=== PATIENT | female | born 1975 | race African-American/Black ===

== ENCOUNTER 2017-12-18 09:20 | Emergency (ER) | payer OTHER, MEDICAID ==
[~2017-12-18] VITALS: Ht 167.6 cm; Wt 72.6 kg
[2017-12-18 11:04] LABS: Urine Bacteria NONE SEEN /hpf (None Seen); Urine Blood Negative /uL (Negative); Urine Hyaline Cast FEW /lpf (0 - 2); Urine Mucus FEW (None Seen); Urine Specific Gravity 1.048 (1.001-1.035); Urine WBC 2 /hpf (0 - 5)
[2017-12-18 11:22] LABS: Basophils # (auto) 0 uL; Basophils % (auto) 0.4 % (0.0-2.0); Eosinophils # (auto) 0.5 uL; Monocytes # (auto) 0.8 uL; Neutrophils # (auto) 5.5 uL; Nucleated Red Blood Cells % 0.1 %
[2017-12-18 11:23] LABS: Eosinophils % (auto) 5.4 % (0.0-7.0); Hematocrit 35.1 % (36.0-46.0); Hemoglobin 11.3 g/dL (12.2-16.2); Lymphocytes # (auto) 2.5 uL; Mean Corpuscular Hemoglobin 26.5 pg (28.0-32.0); Mean Corpuscular Hgb Conc. 32.3 g/dL (32.0-36.0); Mean Corpuscular Volume 82.1 fL (80.0-100.0); Monocytes % (auto) 8.6 % (0.0-12.0); Neutrophils % (auto) 58.6 % (37.0-80.0); Platelet Count (auto) 323 10^3/uL (140-450); Red Blood Cells 4.28 10^6/uL (4.0-5.20); Red Cell Distribution Width 18.2 % (11.8-14.3); White Blood Cell 9.4 10^3/uL (4.4-10.8)
[2017-12-18 11:38] LABS: Albumin 3.5 g/dL (3.4-5.0); BUN/Creatinine Ratio 21.8; Bilirubin, Total 0.4 mg/dL (0.2-1.0); Calcium 8.2 mg/dL (8.5-10.1); Total Protein 7.3 g/dL (6.4-8.2)
[2017-12-18] MEDS ORDERED: HYDROcodone-ACET 10/325MG TAB PO ONE (12:15)
[2017-12-18] MEDS ORDERED: methylPREDNISolone SOD SUCC 125 MG/2 ML VL IM ONE (12:15)
[2017-12-18 13:00] VITALS: BP 128/61
== END 2017-12-18 13:01 | disposition home or self-care (01) ==
LOC: ER 09:20
DX: M62.838 Other muscle spasm (principal); M32.9 Systemic lupus erythematosus, unspecified; Z88.6 Allergy status to analgesic agent; Z88.8 Allergy status to other drugs, medicaments and biological substances
CPT/HCPCS: 36415; 80053; 81001; 81025; 85025; 96372; 99284; J2930

== ENCOUNTER 2018-05-23 01:43 | Emergency (ER) | payer OTHER, MEDICAID ==
[~2018-05-23] VITALS: Ht 167.6 cm; Wt 74.8 kg
[2018-05-23 02:58] LABS: Basophils # (auto) 0 uL; Basophils % (auto) 0.4 % (0.0-2.0); Eosinophils # (auto) 0 uL; Eosinophils % (auto) 0.1 % (0.0-7.0); Hemoglobin 10.1 g/dL (12.2-16.2); Monocytes # (auto) 0.6 uL
[2018-05-23] MEDS ORDERED: KETOROLAC TROMETH 60MG/2ML VIAL IM ONE (03:00)
[2018-05-23 03:01] LABS: Hematocrit 32.3 % (36.0-46.0); Lymphocytes % (auto) 9.9 % (10.0-50.0); Mean Corpuscular Hemoglobin 21.7 pg (28.0-32.0); Mean Corpuscular Hgb Conc. 31.4 g/dL (32.0-36.0); Monocytes % (auto) 6.1 % (0.0-12.0); Neutrophils % (auto) 83.5 % (37.0-80.0); Red Blood Cells 4.67 10^6/uL (4.0-5.20); Red Cell Distribution Width 18.1 % (11.8-14.3); White Blood Cell 9.6 10^3/uL (4.4-10.8)
[2018-05-23 03:03] LABS: Albumin 3.3 g/dL (3.4-5.0); BUN/Creatinine Ratio 11.4; Calcium 8.5 mg/dL (8.5-10.1); Potassium 4.7 mmol/L (3.5-5.1)
[2018-05-23 03:06] LABS: Bilirubin, Total 0.2 mg/dL (0.2-1.0); Total Protein 8.6 g/dL (6.4-8.2)
[2018-05-23 03:50] LABS: Urine Bacteria FEW /hpf (None Seen); Urine Blood 2+ /uL (Negative); Urine Specific Gravity 1.034 (1.001-1.035); Urine WBC 2 /hpf (0 - 5)
[2018-05-23 04:14] LABS: Platelet Count (auto) 509 10^3/uL (140-450)
[2018-05-23] MEDS ORDERED: traMADol HCL 50 MG TAB PO ONE (04:15)
[2018-05-23 04:30] VITALS: BP 125/74
== END 2018-05-23 04:49 | disposition home or self-care (01) ==
LOC: ER 01:57
DX: R51 Headache (principal); G62.89 Other specified polyneuropathies; J44.9 Chronic obstructive pulmonary disease, unspecified; E11.9 Type 2 diabetes mellitus without complications; M19.90 Unspecified osteoarthritis, unspecified site; Z88.6 Allergy status to analgesic agent; Z88.8 Allergy status to other drugs, medicaments and biological substances
CPT/HCPCS: 36415; 71045; 80053; 81001; 81025; 85025; 85652

== ENCOUNTER 2018-07-12 09:33 | Day surgery (SDC) | payer OTHER, MEDICAID ==
[2018-07-11 14:45] LABS: Urine Bacteria NONE SEEN /hpf (None Seen); Urine Blood Negative /uL (Negative); Urine Specific Gravity 1.033 (1.001-1.035); Urine WBC <1 /hpf (0 - 5)
[2018-07-11 15:01] LABS: Albumin 3.4 g/dL (3.4-5.0); BUN/Creatinine Ratio 13.3; Bilirubin, Total 0.2 mg/dL (0.2-1.0); Calcium 8.5 mg/dL (8.5-10.1); Total Protein 7.9 g/dL (6.4-8.2)
[2018-07-11 15:03] LABS: INR 0.86 (0.9-1.15); Partial Thromboplastin Time 24.3 sec (23.78-33.04); Prothrombin Time 9.3 sec (9.27-12.13)
[2018-07-11 15:29] LABS: Basophils # (auto) 0.1 uL; Eosinophils # (auto) 0.3 uL; Monocytes # (auto) 0.9 uL; Nucleated Red Blood Cells % 0.1 %
[2018-07-11 15:30] LABS: Basophils % (auto) 0.7 % (0.0-2.0); Eosinophils % (auto) 2.6 % (0.0-7.0); Lymphocytes # (auto) 1.9 uL; Mean Corpuscular Hemoglobin 20.9 pg (28.0-32.0); Mean Corpuscular Hgb Conc. 30.3 g/dL (32.0-36.0); Mean Corpuscular Volume 68.9 fL (80.0-100.0); Monocytes % (auto) 9.1 % (0.0-12.0); Neutrophils % (auto) 68.6 % (37.0-80.0); Platelet Count (auto) 370 10^3/uL (140-450); Red Blood Cells 4.79 10^6/uL (4.0-5.20); White Blood Cell 10.2 10^3/uL (4.4-10.8)
[~2018-07-12] VITALS: Ht 167.6 cm; Wt 77.1 kg
[~2018-07-12 09:33] MED LIST: BACL10TA PO; CYCL1TAB18 PO; DIPH50CA31 OR; DOCU-94 PO; FOLI1TAB6 PO; GABA-339 PO; HYDR-3682 PO; HYDR-531 PO; INSU100I4 SC; LORA-654 PO; METF-929 PO; METH50IN6 IJ; METO-281 PO; OMEP20TA PO; ROPI0.5T PO
[2018-07-12] MEDS ORDERED: ceFAZolin 1GM/50ML 50 ML IV ONE (10:38)
[2018-07-12] MEDS ORDERED: NEOMYCIN-BACITRACIN-POLYM 15GM TOP OINT TOP ONE (12:59)
[2018-07-12] MEDS ORDERED: BUPIVACAINE 0.75% INJ 10ML MPV SDV IJ ONE (12:59)
[2018-07-12] MEDS ORDERED: MIDAZOLAM HCL 1MG/1ML-2 ML VIAL ONE (13:04)
[2018-07-12] MEDS ORDERED: PROPOFOL 10 MG/ML 20 ML IV ONE (13:09)
[2018-07-12] MEDS ORDERED: LIDOCAINE 2% (LOCAL ANESTH.) PF 5ml SDV ONE (13:09)
[2018-07-12] MEDS ORDERED: fentaNYL CITRATE 100 MCG/2 ML VL ONE (13:11)
[2018-07-12 14:01] VITALS: BP 135/75
== END 2018-07-12 14:13 | disposition home or self-care (01) ==
LOC: SUR 09:33
PROVIDERS: ATTEND Podiatrist Foot & Ankle Surgery
DX: M72.2 Plantar fascial fibromatosis (principal); E66.9 Obesity, unspecified; J44.9 Chronic obstructive pulmonary disease, unspecified; M06.9 Rheumatoid arthritis, unspecified; E11.9 Type 2 diabetes mellitus without complications; I10 Essential (primary) hypertension; D64.9 Anemia, unspecified; F41.9 Anxiety disorder, unspecified; Z88.6 Allergy status to analgesic agent; Z88.8 Allergy status to other drugs, medicaments and biological substances; Z98.890 Other specified postprocedural states
CPT/HCPCS: 28060; 36415; 80053; 81001; 82962; 84702; 85025; 85610; 85730; 88304; J0690; J2250; J2704; J3010; J3490; Q4137; J2001

== ENCOUNTER 2018-09-06 05:59 | Emergency (ER) | payer OTHER, MEDICAID ==
[~2018-09-06] VITALS: Ht 167.6 cm; Wt 77.1 kg
[2018-09-06 06:32] VITALS: BP 147/87
[2018-09-06] MEDS: methylPREDNISolone SOD SUCC 125 MG/2 ML VL IM ONE (07:41)
[2018-09-06] MEDS: KETOROLAC TROMETH 60MG/2ML VIAL IM ONE (07:42)
[2018-09-12] MEDS ORDERED: METO25TA4 PO (09:00)
== END 2018-09-06 08:03 | disposition home or self-care (01) ==
LOC: ER 06:00
DX: M25.532 Pain in left wrist (principal); M19.90 Unspecified osteoarthritis, unspecified site; E11.9 Type 2 diabetes mellitus without complications; J44.9 Chronic obstructive pulmonary disease, unspecified; M32.9 Systemic lupus erythematosus, unspecified; Z88.6 Allergy status to analgesic agent; Z88.8 Allergy status to other drugs, medicaments and biological substances
CPT/HCPCS: 73110; 96372; 99284; J1885; J2930

== ENCOUNTER → 2018-09-13 | Day surgery (SDC) | payer OTHER, MEDICAID ==
[2018-09-12 09:35] LABS: Basophils # (auto) 0 uL; Eosinophils # (auto) 0.2 uL; Hemoglobin 9.8 g/dL (12.2-16.2); Monocytes # (auto) 0.5 uL
[2018-09-12 09:37] LABS: Eosinophils % (auto) 3.6 % (0.0-7.0); Lymphocytes % (auto) 20.8 % (10.0-50.0); Mean Corpuscular Hemoglobin 18.6 pg (28.0-32.0); Mean Corpuscular Volume 64.1 fL (80.0-100.0); Neutrophils % (auto) 64.6 % (37.0-80.0); Nucleated Red Blood Cells % 0.1 %; Platelet Count (auto) 447 10^3/uL (140-450); Red Cell Distribution Width 19.5 % (11.8-14.3); White Blood Cell 4.7 10^3/uL (4.4-10.8)
[2018-09-12 09:58] LABS: Potassium 4.2 mmol/L (3.5-5.1)
[2018-09-12 10:03] LABS: INR 0.89 (0.9-1.15); Partial Thromboplastin Time 25.4 sec (23.78-33.04); Prothrombin Time 9.6 sec (9.27-12.13)
[2018-09-12 10:07] LABS: Albumin 3.7 g/dL (3.4-5.0); BUN/Creatinine Ratio 8.7; Bilirubin, Total 0.3 mg/dL (0.2-1.0); Total Protein 8.7 g/dL (6.4-8.2)
[2018-09-12 13:33] LABS: Urine Bacteria FEW /hpf (None Seen); Urine Blood Negative /uL (Negative); Urine Specific Gravity 1.037 (1.001-1.035); Urine WBC <1 /hpf (0 - 5)
[~2018-09-13] VITALS: Ht 167.6 cm; Wt 77.1 kg
[~2018-09-13] MED LIST changes: +BUPIVACAINE 0.75% INJ 10ML MPV SDV IJ ONE; +METO25TA4 PO; +MIDAZOLAM HCL 1MG/1ML-2 ML VIAL ONE; +NEOMYCIN-BACITRACIN-POLYM 15GM TOP OINT TOP ONE; +ONDANSETRON HCL 4 MG/2 ML VIAL IV ONE; +PROPOFOL 10 MG/ML 20 ML IV ONE; +ceFAZolin 1GM/50ML 50 ML IV ONE; +ePHEDrine SULFATE 50 MG/ML AMP IV PRN; +fentaNYL CITRATE 100 MCG/2 ML VL IV ONE; +fentaNYL CITRATE 100 MCG/2 ML VL ONE; +hydrALAZINE HCL 20 MG/ML VL IV PRN
[2018-09-13 11:45] VITALS: BP 119/81
== END | disposition home or self-care (01) ==
LOC: SUR 07:15
PROVIDERS: ATTEND Podiatrist Foot & Ankle Surgery
DX: M72.2 Plantar fascial fibromatosis (principal); J44.9 Chronic obstructive pulmonary disease, unspecified; E11.9 Type 2 diabetes mellitus without complications; M19.90 Unspecified osteoarthritis, unspecified site; M81.0 Age-related osteoporosis without current pathological fracture; E07.9 Disorder of thyroid, unspecified; M06.9 Rheumatoid arthritis, unspecified; M79.7 Fibromyalgia; Z88.8 Allergy status to other drugs, medicaments and biological substances; Z88.6 Allergy status to analgesic agent; Z98.890 Other specified postprocedural states
CPT/HCPCS: 28060; 36415; 80053; 81001; 82962; 84702; 85025; 85610; 85730; 88304; J0690; J2250; J2704; J3010; J3490; Q4137

== ENCOUNTER 2018-10-19 11:35 | Emergency (ER) | payer OTHER, MEDICAID ==
[~2018-10-19] VITALS: Ht 167.6 cm; Wt 77.1 kg
[~2018-10-19 11:35] MED LIST changes: -BUPIVACAINE 0.75% INJ 10ML MPV SDV IJ ONE; -MIDAZOLAM HCL 1MG/1ML-2 ML VIAL ONE; -NEOMYCIN-BACITRACIN-POLYM 15GM TOP OINT TOP ONE; -ONDANSETRON HCL 4 MG/2 ML VIAL IV ONE; -PROPOFOL 10 MG/ML 20 ML IV ONE; -ceFAZolin 1GM/50ML 50 ML IV ONE; -ePHEDrine SULFATE 50 MG/ML AMP IV PRN; -fentaNYL CITRATE 100 MCG/2 ML VL IV ONE; -fentaNYL CITRATE 100 MCG/2 ML VL ONE; -hydrALAZINE HCL 20 MG/ML VL IV PRN
[2018-10-19 12:26] VITALS: BP 141/84
== END 2018-10-19 12:52 | disposition home or self-care (01) ==
LOC: ER 11:35
DX: S60.452A Superficial foreign body of right middle finger, initial encounter (principal); S60.942A Unspecified superficial injury of right middle finger, initial encounter; J44.9 Chronic obstructive pulmonary disease, unspecified; E11.9 Type 2 diabetes mellitus without complications; M19.90 Unspecified osteoarthritis, unspecified site; Z88.6 Allergy status to analgesic agent; Z88.8 Allergy status to other drugs, medicaments and biological substances; Z79.899 Other long term (current) drug therapy; W22.8XXA Striking against or struck by other objects, initial encounter; Y93.89 Activity, other specified; Y92.89 Other specified places as the place of occurrence of the external cause; Y99.8 Other external cause status

== ENCOUNTER 2019-03-04 12:38 | Inpatient (IN) | payer OTHER, MEDICAID ==
[~2019-03-04] VITALS: Ht 167.6 cm; Wt 83.9 kg
[2019-03-04 13:20] LABS: Basophils # (auto) 0 uL; Eosinophils # (auto) 0 uL; Hemoglobin 9.8 g/dL (12.2-16.2); Lymphocytes # (auto) 0.4 uL; Red Cell Distribution Width 19.5 % (11.8-14.3)
[2019-03-04 13:21] LABS: Basophils % (auto) 0.4 % (0.0-2.0); Eosinophils % (auto) 0.1 % (0.0-7.0); Hematocrit 33.5 % (36.0-46.0); Lymphocytes % (auto) 3.8 % (10.0-50.0); Mean Corpuscular Hemoglobin 19.2 pg (28.0-32.0); Mean Corpuscular Hgb Conc. 29.3 g/dL (32.0-36.0); Mean Corpuscular Volume 65.6 fL (80.0-100.0); Monocytes # (auto) 0.1 uL; Monocytes % (auto) 1.4 % (0.0-12.0); Neutrophils % (auto) 94.3 % (37.0-80.0); Platelet Count (auto) 402 10^3/uL (140-450); White Blood Cell 9.6 10^3/uL (4.4-10.8)
[2019-03-04] MEDS ORDERED: SODIUM CHLORIDE 0.9% 1,000 ML IVB ONE (13:34)
[2019-03-04 13:37] LABS: Albumin 3.5 g/dL (3.4-5.0); Anion Gap 14 (5-15); Blood Urea Nitrogen 9 mg/dL (7-18); Calcium 8.6 mg/dL (8.5-10.1); Carbon Dioxide 19 mmol/L (21-32); Chloride 98 mmol/L (98-107); Glucose 385 mg/dL (74-106); Sodium 131 mmol/L (136-145)
[2019-03-04 13:37] LABS: Urine Bacteria NONE SEEN /hpf (None Seen); Urine Blood Negative /uL (Negative); Urine Mucus FEW (None Seen); Urine Specific Gravity 1.033 (1.001-1.035); Urine WBC <1 /hpf (0 - 5)
[2019-03-04 13:43] LABS: Alanine Aminotransferase 11 U/L (13-56); Alkaline Phosphatase 148 U/L (45-117); Aspartate Aminotransferase 8 U/L (15-37); BUN/Creatinine Ratio 8.5; Bilirubin, Total 0.3 mg/dL (0.2-1.0); GFR African American 73 mL/min; GFR Non-African American 60 mL/min
[2019-03-04] MEDS ORDERED: MORPHINE SULF INJ 2 MG/ML SYRINGE 1ML IV ONE (13:45)
[2019-03-04] MEDS ORDERED: ONDANSETRON HCL 4 MG/2 ML VIAL IV ONE (13:45)
[2019-03-04] MEDS ORDERED: ASPirin-EC 81 mg tab PO ONE (13:45)
[2019-03-04 14:13] LABS: INR 0.88 (0.9-1.15); Partial Thromboplastin Time 26.8 sec (23.78-33.04); Prothrombin Time 9.5 sec (9.27-12.13)
[2019-03-04] MEDS ORDERED: methylPREDNISolone SOD SUCC 125 MG/2 ML VL IV ONE (15:45)
[2019-03-04] MEDS: SODIUM CHLORIDE 0.9% 1,000 ML IV SCH (16:54)
[2019-03-04] MEDS: methylPREDNISolone SOD SUCC 40 MG/ML VL IV SCH (17:00)
[2019-03-04] MEDS ORDERED: TEMAZEPAM 15 MG CAP PO PRN (17:00)
[2019-03-04] MEDS ORDERED: MORPHINE SULF INJ 2 MG/ML SYRINGE 1ML IV PRN (17:00)
[2019-03-04] MEDS ORDERED: traMADol HCL 50 MG TAB PO PRN (17:00)
[2019-03-04] MEDS ORDERED: METOPROLOL SUCCINATE PO SCH (17:00)
[2019-03-04] MEDS ORDERED: ACETAMINOPHEN 500 MG TAB PO PRN (17:00)
[2019-03-04] MEDS ORDERED: DEXTROSE (50%) 50ML SYRG IV PRN (17:00)
[2019-03-04] MEDS ORDERED: LORazepam 0.5 MG TAB PO PRN (17:00)
[2019-03-04] MEDS ORDERED: NITROGLYCERIN 0.4 MG SL TAB SL PRN (17:00)
[2019-03-04] MEDS: ROPINIROLE HYDROCHLORIDE 0.5 MG PO SCH (18:00)
[2019-03-04] MEDS: PROMETHAZINE HCL 25 MG/ML 1ML IV PRN ×2 (18:17→23:40)
[2019-03-04] MEDS: NALBUPHINE HCL 10 MG/1ml INJECTION IV PRN ×2 (18:17→23:35)
[2019-03-04] MEDS: ACCU-CHEK COMFORT CURVE STRIP VI SCH ×2 (20:00→23:44)
[2019-03-04] MEDS: InsuLIN REG 1unit/0.01ml Soln (100units/ml) SC SCH ×2 (20:00→23:44)
[2019-03-04 21:10] VITALS: BP 116/60
[2019-03-04] MEDS: DOCUSATE SOD 100 MG CAP PO SCH (21:27)
[2019-03-04] MEDS: GABAPENTIN 300 MG CAP PO SCH (21:27)
[2019-03-04] MEDS: ATORVASTATIN 20 MG TAB PO SCH (21:27)
[2019-03-04 22:50] VITALS: BP 116/60
[2019-03-05] MEDS ORDERED: diphenhdrAMINE HCL 25 MG CAP PO ONE (00:45)
[2019-03-05] MEDS ORDERED: INSU1INJ19 SC (00:56)
[2019-03-05] MEDS ORDERED: INSU100I24 SC (00:58)
[2019-03-05] MEDS: ACCU-CHEK COMFORT CURVE STRIP VI SCH ×5 (03:39→20:34)
[2019-03-05] MEDS: InsuLIN REG 1unit/0.01ml Soln (100units/ml) SC SCH ×5 (03:39→20:34)
[2019-03-05 04:45] VITALS: BP 97/54
[2019-03-05] MEDS: methylPREDNISolone SOD SUCC 40 MG/ML VL IV SCH (05:41)
[2019-03-05] MEDS: GABAPENTIN 300 MG CAP PO SCH ×3 (05:41→20:49)
[2019-03-05] MEDS: SODIUM CHLORIDE 0.9% 1,000 ML IV SCH ×2 (05:42→19:34)
[2019-03-05 06:10] LABS: Cholesterol 180 mg/dL (< 200); Triglycerides 79 mg/dL (< 150)
[2019-03-05 06:12] LABS: HDL Cholesterol 73 mg/dL (40-59); LDL Cholesterol 103 mg/dL (< 100)
[2019-03-05] MEDS: CYCLOBENZAPRINE HCL 10 MG TAB PO SCH (08:29)
[2019-03-05] MEDS: NALBUPHINE HCL 10 MG/1ml INJECTION IV PRN ×2 (08:29→20:53)
[2019-03-05] MEDS: PROMETHAZINE HCL 25 MG/ML 1ML IV PRN ×2 (08:29→20:50)
[2019-03-05] MEDS: PANTOPRAZOLE 40 MG TAB PO SCH (08:29)
[2019-03-05] MEDS: ENOXAPARIN SOD 40 MG/0.4 ML SYRINGE SC SCH (08:30)
[2019-03-05] MEDS: DOCUSATE SOD 100 MG CAP PO SCH ×2 (08:30→20:48)
[2019-03-05] MEDS: ASPirin 81 mg TAB PO SCH (08:30)
[2019-03-05] MEDS: FOLIC ACID 1 MG TAB PO SCH (08:30)
[2019-03-05 09:18] VITALS: BP 107/58
[2019-03-05] MEDS: NITROGLYCERIN 0.2MG/HR TOPICAL PATCH TD SCH (10:00)
[2019-03-05] MEDS ORDERED: HYDROcodone-ACET 5/325MG TAB PO PRN (11:45)
[2019-03-05 13:21] VITALS: BP 120/78
[2019-03-05] MEDS ORDERED: methylPREDNISolone SOD SUCC 125 MG/2 ML VL IV SCH (14:00)
[2019-03-05] MEDS: LACTULOSE 20Gm/30ML SOLN PO PRN (14:16)
[2019-03-05 17:18] VITALS: BP 122/74
[2019-03-05] MEDS: ROPINIROLE HYDROCHLORIDE 0.5 MG PO SCH (18:00)
[2019-03-05] MEDS ORDERED: POLYETHYLENE GLYCOL 17 GM PWDR PO PRN (19:15)
[2019-03-05] MEDS: methylPREDNISolone SOD SUCC 125 MG/2 ML VL IV SCH (20:48)
[2019-03-05] MEDS: ATORVASTATIN 20 MG TAB PO SCH (20:49)
[2019-03-05 22:00] VITALS: BP 137/90
[2019-03-05] MEDS ORDERED: INSULIN LANTUS (GLARGINE) 1 /0.01ml (100units/ml) SC SCH (22:00)
[2019-03-06] MEDS: ACCU-CHEK COMFORT CURVE STRIP VI SCH ×5 (00:25→17:46)
[2019-03-06] MEDS: InsuLIN REG 1unit/0.01ml Soln (100units/ml) SC SCH ×5 (00:27→16:00)
[2019-03-06 05:27] VITALS: BP 118/61
[2019-03-06] MEDS: GABAPENTIN 300 MG CAP PO SCH ×2 (06:00→14:00)
[2019-03-06 09:00] VITALS: BP 115/66
[2019-03-06] MEDS: methylPREDNISolone SOD SUCC 125 MG/2 ML VL IV SCH (09:41)
[2019-03-06] MEDS: ENOXAPARIN SOD 40 MG/0.4 ML SYRINGE SC SCH (09:41)
[2019-03-06] MEDS: FOLIC ACID 1 MG TAB PO SCH (09:41)
[2019-03-06] MEDS: ASPirin 81 mg TAB PO SCH (09:42)
[2019-03-06] MEDS: CYCLOBENZAPRINE HCL 10 MG TAB PO SCH (09:42)
[2019-03-06] MEDS: PANTOPRAZOLE 40 MG TAB PO SCH (09:42)
[2019-03-06] MEDS: DOCUSATE SOD 100 MG CAP PO SCH (09:42)
[2019-03-06] MEDS: LACTULOSE 20Gm/30ML SOLN PO PRN (09:55)
[2019-03-06] MEDS: NITROGLYCERIN 0.2MG/HR TOPICAL PATCH TD SCH (10:00)
[2019-03-06] MEDS: SODIUM CHLORIDE 0.9% 1,000 ML IV SCH (10:00)
[2019-03-06] MEDS: NALBUPHINE HCL 10 MG/1ml INJECTION IV PRN (11:19)
[2019-03-06 12:44] VITALS: BP 128/92
[2019-03-06 13:42] VITALS: BP 107/58
[2019-03-06 16:59] VITALS: BP 133/84
== END 2019-03-06 16:20 | disposition home or self-care (01) | DRG 638 ==
LOC: ER 12:43 → TELE 16:59 → TELE-WESTW 20:46
PROVIDERS: ADMIT Internal Medicine; ATTEND Internal Medicine
DX: E11.65 Type 2 diabetes mellitus with hyperglycemia (principal); E87.1 Hypo-osmolality and hyponatremia; M35.1 Other overlap syndromes; R07.89 Other chest pain; M79.7 Fibromyalgia; G25.81 Restless legs syndrome; M32.9 Systemic lupus erythematosus, unspecified; E11.42 Type 2 diabetes mellitus with diabetic polyneuropathy; D64.9 Anemia, unspecified; M19.90 Unspecified osteoarthritis, unspecified site; I73.00 Raynaud's syndrome without gangrene; I10 Essential (primary) hypertension; J44.9 Chronic obstructive pulmonary disease, unspecified; K59.00 Constipation, unspecified; M06.9 Rheumatoid arthritis, unspecified; Z79.4 Long term (current) use of insulin; Z80.7 Family history of other malignant neoplasms of lymphoid, hematopoietic and related tissues; Z82.49 Family history of ischemic heart disease and other diseases of the circulatory system; Z83.3 Family history of diabetes mellitus; Z87.891 Personal history of nicotine dependence; Z93.0 Tracheostomy status; Z88.8 Allergy status to other drugs, medicaments and biological substances; Z90.49 Acquired absence of other specified parts of digestive tract
CPT/HCPCS: 36415; 71046; 76536; 80053; 80061; 81001; 81025; 82550; 82962; 83036; 83735; 83880; 84443; 84484; 85025; 85379; 85610; 85652; 85730; 86141; 93005; 94761; 96361; 96374; 96375; G0378; J1815; J2405

== ENCOUNTER 2019-12-26 01:17 | Emergency (ER) | payer OTHER, MEDICAID ==
[~2019-12-26] VITALS: Ht 167.6 cm; Wt 74.8 kg
[~2019-12-26 01:17] MED LIST changes: -HYDR-531 PO; +INSU100I24 SC; -INSU100I4 SC; +INSU1INJ19 SC; -LORA-654 PO; +LORA0.5T12 PO; +METO25TA36 PO; -METO25TA4 PO; -ROPI0.5T PO; +ROPI0.5T16 PO
[2019-12-26 03:53] VITALS: BP 127/70
== END 2019-12-26 04:16 | disposition home or self-care (01) ==
LOC: ER 01:19
DX: J32.9 Chronic sinusitis, unspecified (principal); M19.90 Unspecified osteoarthritis, unspecified site; J45.909 Unspecified asthma, uncomplicated; E11.9 Type 2 diabetes mellitus without complications

== ENCOUNTER 2020-01-11 20:01 | Emergency (ER) | payer OTHER, MEDICAID ==
[~2020-01-11] VITALS: Ht 167.6 cm; Wt 79.4 kg
[2020-01-12 00:15] VITALS: BP 144/82
[2020-01-12] MEDS ORDERED: HYDROcodone-ACET 5/325MG TAB PO ONE (00:30)
== END 2020-01-12 01:14 | disposition home or self-care (01) ==
LOC: EDBD 20:01 → ER 20:01
DX: S06.0X0A Concussion without loss of consciousness, initial encounter (principal); M50.20 Other cervical disc displacement, unspecified cervical region; S16.1XXA Strain of muscle, fascia and tendon at neck level, initial encounter; S39.012A Strain of muscle, fascia and tendon of lower back, initial encounter; M19.90 Unspecified osteoarthritis, unspecified site; J45.909 Unspecified asthma, uncomplicated; E11.9 Type 2 diabetes mellitus without complications; Z79.899 Other long term (current) drug therapy; Z88.6 Allergy status to analgesic agent; V89.2XXA Person injured in unspecified motor-vehicle accident, traffic, initial encounter; Y93.89 Activity, other specified; Y92.410 Unspecified street and highway as the place of occurrence of the external cause; Y99.8 Other external cause status
CPT/HCPCS: 70450; 72125; 72131